=== PATIENT | female | born 1970 | race Caucasian/White ===

== ENCOUNTER 2021-05-06 22:51 | Inpatient (IN) | payer OTHER ==
[~2021-05-06] VITALS: Ht 165.1 cm; Wt 128.0 kg
[2021-05-06 23:21] LABS: HEMATOCRIT 35.4 % (37.0-47.0); HEMOGLOBIN 9.5 g/dl (12.0-16.0); IMMATURE GRANULOCYTES 2.4 % (0.0-5.0); MEAN CELL VOLUME 79.7 fL CALC (80.0-100.0); MEAN CORPUSCULAR HGB 21.4 pG CALC (26.0-32.0); MEAN CORPUSCULAR HGB CONC 26.8 g/dL CAL (32.0-36.0); NEUT# 16.55 thou/uL (2.00-7.15); RED BLOOD COUNT 4.44 mill/uL (4.20-5.60); RED CELL DISTRI WIDTH 18.3 % (11.5-15.5)
[2021-05-06 23:37] LABS: HCG SERUM/URINE (NEG/POS) NEGATIVE (NEGATIVE)
[2021-05-06 23:38] LABS: ALBUMIN 4.1 g/dL (3.2-5.0); ALKALINE PHOSPHATASE 112 u/l (38-126); ANION GAP 23 (6-22 (CALC)); BILIRUBIN, TOTAL 0.4 mg/dL (0.0-1.4); BUN 10 mg/dL (7-17); BUN/CREATININE RATIO 15 (12-20 (CALC)); CARBON DIOXIDE 14 mmol/l (22-30); CHLORIDE 106 mmol/l (95-108); CREATININE 0.6 mg/dL (0.5-1.0); ETHYL ALCOHOL 0 mg/dl (0-30); GFR > 60 ML/MIN (>=60 (CALC)); GFR FOR AFR.AMER. > 60 ML/MIN (>=60 (CALC)); LIPASE 140 u/l (23-300); POTASSIUM 4.6 mmol/l (3.5-5.1); SGOT/AST 31 u/l (14-36); SODIUM 137 mmol/l (137-146); TOTAL PROTEIN 7.4 g/dL (6.3-8.2)
[2021-05-06 23:40] LABS: ACT PARTIAL THROMBO TIME 22.3 SECONDS (20.0-32.5); PROTHROMBIN TIME 10.2 SECONDS (9.0-12.5)
[2021-05-07] VITALS (17 sets, daily range): BP systolic 120–154; BP diastolic 55–77
[2021-05-07 01:34] LABS: URINE BILIRUBIN - DIPSTICK NEGATIVE (NEGATIVE); URINE BLOOD DIPSTICK NEGATIVE (NEGATIVE); URINE COLOR YELLOW; URINE GLUCOSE - DIPSTICK >=1000 mg/dL (NEGATIVE); URINE KETONE NEGATIVE (NEGATIVE); URINE LEUK ESTERASE NEGATIVE (NEGATIVE); URINE PROTEIN - DIPSTICK NEGATIVE (NEG-TRACE); URINE SPECIFIC GRAVITY 1.015; URINE UROBILINOGEN - DIPSTICK 0.2 E.U./dL (0.2)
[2021-05-07 01:35] LABS: URINE NITRITE - DIPSTICK NEGATIVE (Negative)
[2021-05-07 05:39] LABS: HEMATOCRIT 30.1 % (37.0-47.0); HEMOGLOBIN 8.4 g/dl (12.0-16.0); IMMATURE GRANULOCYTES 0.8 % (0.0-5.0); MEAN CELL VOLUME 77.2 fL CALC (80.0-100.0); MEAN CORPUSCULAR HGB 21.5 pG CALC (26.0-32.0); MEAN CORPUSCULAR HGB CONC 27.9 g/dL CAL (32.0-36.0); NEUT# 21.4 thou/uL (2.00-7.15); RED BLOOD COUNT 3.9 mill/uL (4.20-5.60); RED CELL DISTRI WIDTH 17.9 % (11.5-15.5)
[2021-05-07 05:52] LABS: BUN 12 mg/dL (7-17); BUN/CREATININE RATIO 29 (12-20 (CALC)); CHLORIDE 110 mmol/l (95-108); CREATININE 0.4 mg/dL (0.5-1.0); GFR > 60 ML/MIN (>=60 (CALC)); GFR FOR AFR.AMER. > 60 ML/MIN (>=60 (CALC)); MAGNESIUM 1.9 mg/dL (1.6-2.3); POTASSIUM 4.5 mmol/l (3.5-5.1); SODIUM 139 mmol/l (137-146)
[2021-05-07 06:01] LABS: ANION GAP 12 (6-22 (CALC)); CARBON DIOXIDE 22 mmol/l (22-30)
[2021-05-07] MEDS ORDERED: ASPIRIN 81 LOW81 MG PO (14:33)
[2021-05-07] MEDS ORDERED: ELIQUIS5 MG PO (14:38)
[2021-05-07] MEDS ORDERED: ATORVASTATIN CA40 MG PO (14:39)
[2021-05-07] MEDS ORDERED: METFORMIN500 M2 PO (14:40)
[2021-05-07] MEDS ORDERED: LOSARTAN POTASS50 MG PO (14:40)
[2021-05-07] MEDS ORDERED: MONTELUKAST SOD10 MG PO (14:41)
[2021-05-07] MEDS ORDERED: JARDIANCE25 MG PO (14:44)
[2021-05-07] MEDS ORDERED: CETIRIZINE10 MG PO (14:45)
[2021-05-07] MEDS ORDERED: LEVEMIR FL100 UNIT/M SC (14:46)
[2021-05-07] MEDS ORDERED: NORVASC PO (14:47)
[2021-05-07] MEDS ORDERED: CITALOPRAM20 MG PO (14:48)
[2021-05-07] MEDS ORDERED: PROTONIX40 MG PO (14:49)
[2021-05-07] MEDS ORDERED: WIXELA INHUB 501 AER PO (14:51)
[2021-05-07] MEDS ORDERED: LEVOTHYROXIN88 MC1 PO (14:52)
[2021-05-07] MEDS ORDERED: VENTOLIN HFA108 MCG (14:55)
[2021-05-07] MEDS ORDERED: IPRATROPIU0.5 MG/3 M IN (15:05)
[2021-05-07] MEDS ORDERED: HUMALOG100 UNIT/M SC (15:10)
[2021-05-08] VITALS (7 sets, daily range): BP systolic 118–150; BP diastolic 67–79
[2021-05-08 04:29] LABS: HEMATOCRIT 29.5 % (37.0-47.0); HEMOGLOBIN 8.3 g/dl (12.0-16.0); MEAN CELL VOLUME 77.2 fL CALC (80.0-100.0); MEAN CORPUSCULAR HGB 21.7 pG CALC (26.0-32.0); MEAN CORPUSCULAR HGB CONC 28.1 g/dL CAL (32.0-36.0); RED BLOOD COUNT 3.82 mill/uL (4.20-5.60); RED CELL DISTRI WIDTH 17.8 % (11.5-15.5)
[2021-05-08 04:50] LABS: ANION GAP 11 (6-22 (CALC)); BUN 20 mg/dL (7-17); BUN/CREATININE RATIO 40 (12-20 (CALC)); CARBON DIOXIDE 24 mmol/l (22-30); CHLORIDE 111 mmol/l (95-108); CREATININE 0.5 mg/dL (0.5-1.0); GFR > 60 ML/MIN (>=60 (CALC)); GFR FOR AFR.AMER. > 60 ML/MIN (>=60 (CALC)); MAGNESIUM 2.2 mg/dL (1.6-2.3); POTASSIUM 4.8 mmol/l (3.5-5.1); SODIUM 141 mmol/l (137-146)
[2021-05-08] MEDS ORDERED: LEVAQUIN750 M1 PO (11:38)
== END 2021-05-08 13:25 | disposition home or self-care (01) | DRG 193 ==
LOC: EDBD 22:51 → ED 22:51 → ED-I 05-07 → ED 05-07 00:16 → ICU 05-07 00:17
PROVIDERS: ADMIT Hospitalist; ATTEND Hospitalist
PROC: 5A09357 Assistance with Respiratory Ventilation, Less than 24 Consecutive Hours, Continuous Positive Airway Pressure (ICD-10-PCS; principal; 2021-05-06)
PROC: 0T9B70Z Drainage of Bladder with Drainage Device, Via Natural or Artificial Opening (ICD-10-PCS; 2021-05-07)
DX: J18.9 Pneumonia, unspecified organism (principal); J96.01 Acute respiratory failure with hypoxia; E87.4 Mixed disorder of acid-base balance; J44.1 Chronic obstructive pulmonary disease with (acute) exacerbation; J44.0 Chronic obstructive pulmonary disease with (acute) lower respiratory infection; Z68.42 Body mass index [BMI] 45.0-49.9, adult; E66.2 Morbid (severe) obesity with alveolar hypoventilation; E11.65 Type 2 diabetes mellitus with hyperglycemia; I10 Essential (primary) hypertension; Z88.0 Allergy status to penicillin; Z95.5 Presence of coronary angioplasty implant and graft; Z20.822 Contact with and (suspected) exposure to COVID-19
CPT/HCPCS: J1650

== ENCOUNTER 2021-06-11 15:11 | Inpatient (IN) | payer OTHER ==
[~2021-06-11] VITALS: Ht 165.1 cm; Wt 130.0 kg
[~2021-06-11 15:11] MED LIST: ALBUTEROL SUL0.083 % IN; ALEVE220 M1 PO; ALL DAY10 MG PO; AMLODIPINE BESYL5 MG PO; ASPIRIN 81 LOW81 MG PO; ASPIRIN81 MG PO; ATENOLOL25 MG PO; ATORVASTATIN CA40 MG PO; CELEXA20 M1 PO; CETIRIZINE10 MG PO; CITALOPRAM20 MG PO; CLOPIDOGREL75 MG PO; CYCLOBENZAPR5 MG PO; ELIQUIS5 MG PO; FLEXERIL PO; HM ASPIRIN EC325 MG PO; HUMALOG100 UNIT/M SC; IPRATROPIU0.5 MG/3 M IN; ISOSORB MONO30 MG PO; JARDIANCE25 MG PO; LEVAQUIN750 M1 PO; LEVEMIR FL100 UNIT/M SC; LEVOTHYROXIN125 MCG PO; LEVOTHYROXIN25 MC1 PO; LEVOTHYROXIN75 MCG PO; LEVOTHYROXIN88 MC1 PO; LIPITOR20 MG PO; LIPITOR40 M1 PO; LOSARTAN POTASS50 MG PO; Levaquin PO; MEDDOSEPAK PO; METFORMIN HYD1000 MG PO; METFORMIN500 M2 PO; METFORMIN500 MG PO; MONTELUKAST SOD10 MG PO; MONTELUKAST SODIUM PO; MUCINEX600 MG PO; NEBULIZE1; NORVASC PO; NOVOLOG MIX100 U/ML SC; OMNICEF300 M1 PO; PLAVIX75 MG PO; PREDNISONE50 MG PO; PROAIR HFA108 MCG/AC IN; PROAIR HFA108 MCG/AC PO; PROTONIX40 M2 PO; PROTONIX40 MG PO; SERTRALINE25 MG PO; SPIRIVA RE1.25 MCG/A IN; ULTRAM50 M1 PO; VENTOLIN HF1 IN; VENTOLIN HFA108 MCG INHW/SPAC; WIXELA INHUB 501 AER IN; WIXELA INHUB 501 AER PO; ZESTRIL5 M1 PO; ZITHROMAX250 MG PO; ZITHROMAX500 MG PO; ZPAK PO
--- NOTE | 2021-06-11 15:21 | NUR ---
PT ESCORTED VIA EMS STRETCHER TO ROOM 6 FOR EVAL SOB. PROVIDER AT BEDSIDE
--- NOTE | 2021-06-11 15:26 | NUR ---
PREPARATION FOR INTUBATION WITH RN, RT, MD AND ANESTHESIA AT BEDSIDE 1526 KETAMINE ADMINISTRATION 1528 2ND KETAMINE ADMINISTRATION 1530 SUCC ADMINISTRATION 1531 STYLET REMOVED 1532 PROPOFOL INITIATION 1535 ETOMIDATE
[2021-06-11 16:03] LABS: URINE BILIRUBIN - DIPSTICK NEGATIVE (NEGATIVE); URINE BLOOD DIPSTICK NEGATIVE (NEGATIVE); URINE COLOR YELLOW; URINE GLUCOSE - DIPSTICK >=1000 mg/dL (NEGATIVE); URINE KETONE NEGATIVE (NEGATIVE); URINE LEUK ESTERASE NEGATIVE (NEGATIVE); URINE PROTEIN - DIPSTICK 100 mg/dL (NEG-TRACE); URINE SPECIFIC GRAVITY 1.025; URINE UROBILINOGEN - DIPSTICK 0.2 E.U./dL (0.2)
[2021-06-11 16:11] LABS: URINE NITRITE - DIPSTICK NEGATIVE (Negative); URINE RBC 0-2 RBC/hpf (0-5); URINE SQUAMOUS EPITHELIAL CELL FEW EPI/hpf (0-FEW); URINE WBC 0-2 WBC/hpf (0-5)
[2021-06-11 16:29] LABS: HEMATOCRIT 32.2 % (37.0-47.0); HEMOGLOBIN 8.5 g/dl (12.0-16.0); IMMATURE GRANULOCYTES 3.8 % (0.0-5.0); MEAN CELL VOLUME 73.7 fL CALC (80.0-100.0); MEAN CORPUSCULAR HGB 19.5 pG CALC (26.0-32.0); MEAN CORPUSCULAR HGB CONC 26.4 g/dL CAL (32.0-36.0); NEUT# 23.4 thou/uL (2.00-7.15); RED BLOOD COUNT 4.37 mill/uL (4.20-5.60); RED CELL DISTRI WIDTH 19.6 % (11.5-15.5)
[2021-06-11 16:44] LABS: ALBUMIN 3.9 g/dL (3.2-5.0); ALKALINE PHOSPHATASE 118 u/l (38-126); ANION GAP 16 (6-22 (CALC)); BILIRUBIN, TOTAL 0.3 mg/dL (0.0-1.4); BUN 11 mg/dL (7-17); BUN/CREATININE RATIO 17 (12-20 (CALC)); CARBON DIOXIDE 18 mmol/l (22-30); CHLORIDE 111 mmol/l (95-108); CREATININE 0.6 mg/dL (0.5-1.0); GFR > 60 ML/MIN (>=60 (CALC)); GFR FOR AFR.AMER. > 60 ML/MIN (>=60 (CALC)); POTASSIUM 4.9 mmol/l (3.5-5.1); SGOT/AST 56 u/l (14-36); SODIUM 140 mmol/l (137-146)
--- NOTE | 2021-06-11 19:45 | NUR ---
RECEIVED FROM ER VIA STRETCHER. ACCOMPANIED BY ER NURSES AND RT WADNER. PATIENT IS INTUBATED AND SEDATED ON PROPFOL AND VERSED GTTS. RASS -4. TRANSFERRED FROM STRETCHER TO BED WITH 6 PERSON ASSIST. PATIENT PLACED ON VENT BY RT. O2 SAT 98% BREATH SOUNDS COARSE THROUGHOUT LUNGS MENDES. NGT IN PLACE TO LIS DRAINING SMALL AMOUNT YELLOW. GILMORE CATHETER DRAINING CLEAR YELLOW URINE. IO TO RT SHOULDER DC'D WITH NEEDLE INTACT. IV SITES IN RFA AND LFA, BOTH SITES BENIGN. MEDICAL AUTHORIZATION SPECIALIST SHOWS SR HR 90'S. SCD'S INTACT BILATERALLY.
--- NOTE | 2021-06-11 20:06 | NUR ---
Admission Note Report Given to: SHOAIB Transported by: Wheelchair X Stretcher Transported with: X Nurse Transporter X Patent IV X O2 X Joint Creaser Location: X ICU MS2
[2021-06-11 20:15] VITALS: BP 126/58
[2021-06-11 20:30] VITALS: BP 133/64
[2021-06-11 20:45] VITALS: BP 132/64
[2021-06-11 21:00] VITALS: BP 132/60
[2021-06-11 22:00] VITALS: BP 140/70
--- NOTE | 2021-06-11 22:00 | NUR ---
SR ON MONITOR. BP STABLE. WEANING LEVOPHED-DECREASED AT THIS TIME TO 7 MCG/MIN.
[2021-06-11 23:00] VITALS: BP 139/68
--- NOTE | 2021-06-11 23:00 | NUR ---
FIO2 DECERASED TO 80% BY RT.
[2021-06-12] VITALS (23 sets, daily range): BP systolic 116–139; BP diastolic 55–68
--- NOTE | 2021-06-12 02:00 | NUR ---
BP STABLE SINCE ARRIVAL TO ICU. TITRATED DOWN AND DC'D, ON STANDBY AT THIS TIME.
--- NOTE | 2021-06-12 04:00 | NUR ---
VSS. SR ON MONITOR. ADDITIONAL IV STARTED IN LH #20 X1 ATTEMPT. NS NOW INFUSING TO NEW SITE. VERSED GTT CONTINUES AT 5 MG/HR AND PROPOFOL GTT AT 50 MCG/KG/MIN. PATIENT ADEQUATELY SEDATED, RASS -4. SR ON MONITOR, OCC PVC.
[2021-06-12 04:27] LABS: HEMATOCRIT 30.1 % (37.0-47.0); HEMOGLOBIN 8.1 g/dl (12.0-16.0); MEAN CELL VOLUME 72.7 fL CALC (80.0-100.0); MEAN CORPUSCULAR HGB 19.6 pG CALC (26.0-32.0); MEAN CORPUSCULAR HGB CONC 26.9 g/dL CAL (32.0-36.0); RED BLOOD COUNT 4.14 mill/uL (4.20-5.60); RED CELL DISTRI WIDTH 19.6 % (11.5-15.5)
[2021-06-12 04:48] LABS: ANION GAP 12 (6-22 (CALC)); BUN 12 mg/dL (7-17); BUN/CREATININE RATIO 25 (12-20 (CALC)); CALCULATED LDLCHOLESTEROL 76 mg/dL (62-129 (CALC)); CARBON DIOXIDE 21 mmol/l (22-30); CHLORIDE 114 mmol/l (95-108); CHOLESTEROL HDL RATIO 4.8 (<4.4 (CALC)); CREATININE 0.5 mg/dL (0.5-1.0); GFR > 60 ML/MIN (>=60 (CALC)); GFR FOR AFR.AMER. > 60 ML/MIN (>=60 (CALC)); HDL CHOLESTEROL 29 mg/dL (>=40); POTASSIUM 4.7 mmol/l (3.5-5.1); SODIUM 142 mmol/l (137-146); TOTAL CHOLESTEROL 137 mg/dl (0-199); TOTAL TRIGLYCERIDES 163 mg/dl (30-149); VLDL CHOLESTROL 33 mg/dl (2-49 (CALC))
--- NOTE | 2021-06-12 06:40 | NUR ---
NEW ORDERS RECEIVED FOR HEPARIN GTT, BLOOD DRAWN FOR BASELINE PTT AND SENT TO LAB.
--- NOTE | 2021-06-12 07:19 | NUR ---
Patient is screened for interventionand no needs are identified at this time
--- NOTE | 2021-06-12 07:55 | NUR ---
Dr Hernandez called per promotion writer in regards to Heparin bolus; informed pt received Lovenox 40 at approx 2000 last night; orders received to admin Heparin bolus and continue gtt as per protocol; will continue to monitor
--- NOTE | 2021-06-12 08:00 | NUR ---
pt resting/sedated; no apparent distress noted; assessment completed at this time; pt intubated and sedated; pupils sluggish but reactive; no s/sx of pain noted; no n/v noted; resp even and unlabored; lungs coarse anterior; skin color wnl; vent intact and maintained with settings of AC mode, rate 26, TV 380, FiO2 70%, Peep 5.0; 7.5 Fr ETT secured at the 23cm lip line; hr reg; strong pulses; no edema noted; bilat scds intact; sr on monitor; abd soft/ distended with bs present; no bm noted per gag writer; NG tube intact to right nare with greenish gastric contents noted; randall to gravity draining clear yellow urine; #20 to lh patent with ivf infusing without complication; #22 patent to lfa with propofol gtt infusing at 50 mcg/kg/min; #22 to rfa patent with versed gtt infusing at 5mg/hr; #22 started to rh x1 attempt; flushed and patent; heparin gtt initiated at 1000 units/hr; no redness or edema noted at sites; repositioned; will continue to monitor
--- NOTE | 2021-06-12 08:19 | NUR ---
call received from sister Slime; passcode verified; update provided including transfer to [facility]
--- NOTE | 2021-06-12 08:30 | NUR ---
Dr Hernandez present at bedside to assess pt
--- NOTE | 2021-06-12 10:00 | NUR ---
pt intubated and sedated; repositioned; oral care; restraints released for nursing care/repositioning; sr on monitor; randall to gravity; versed/propofol continues; will continue to monitor
--- NOTE | 2021-06-12 10:05 | NUR ---
[facility] transfer center called; spoke with Anali; pt has been accepted; awaiting available bed
[2021-06-12] MEDS ORDERED: ATIVAN0.5 MG PO (10:35)
--- NOTE | 2021-06-12 10:36 | NUR ---
S: ELIDIA REID is a 51 F who presents with SOB, pneumonia. She has a history of diabetes, heart disease, hypertension, lung disease. All medications in patient's chart were reviewed. O: VS: BP 116/57 mmHg, P 82 beats/min, RR 31 breaths/min, T 97.2 F W 130 kg, HT 165.1 cm, Scr=0.5 mg/dL, CrCl= 149.3 ml/min A: No cultures taken P: Patient is on Azetronam 1 gram Q8H IV. Vancomycin ordered for pharmacy to dose. Start [id number] IV Q8H. Vancomycin trough is drawn before the 4th dose on 06/13 @0330. Vancomycin goal trough is between 15-20 mcg/ml. Pharmacy will follow and or advise on antibiotics use as needed.
--- NOTE | 2021-06-12 12:00 | NUR ---
remains intubated and sedated; iv's intact; sr on monitor; will continue to monitor
--- NOTE | 2021-06-12 12:06 | NUR ---
Dr Hernandez present on unit; informs parts data writer to transfer pt by ground transport; informed per this parts data writer of troponin of 2.120
--- NOTE | 2021-06-12 12:08 | NUR ---
call received from [facility] transfer center Eric pt to transfer to [facility] room 4B10; report to be called to [facility] transfer line [phone]
--- NOTE | 2021-06-12 12:19 | NUR ---
[facility] called per staff writer; Dr Sunny ernandez MD
--- NOTE | 2021-06-12 12:20 | NUR ---
[facility] called per teletypewriter operator; information provided to Raina on transfer to [facility]; ETA 2 hours
--- NOTE | 2021-06-12 12:50 | NUR ---
call placed to [facility] K[facility]on; updated on ETA; report to be call closer to time of transfer
--- NOTE | 2021-06-12 14:00 | NUR ---
intubated and sedated; no apparent distress noted; vent intact and maintained; iv's patent; sr on monitor; repositioned to left side; oral care/ suctioning provided; randall to gravity; restraints continued; scds intact; will continue to monitor
--- NOTE | 2021-06-12 14:47 | NUR ---
[facility] transport at bedside to receive pt; report to be provided
--- NOTE | 2021-06-12 15:09 | NUR ---
report provided to [facility] transport; [facility]; versed cont at 4mg/hr; propofol gtt cont at 55mcg/kg/min; heparin gtt infusing at 1000 units/hr; vent intact and maintained per transport team; pt dc'd in stable condition
--- NOTE | 2021-06-12 15:21 | NUR ---
report called to [facility] ICU DEV Rocha
== END 2021-06-12 15:09 | disposition short-term general hospital (02) | DRG 208 ==
LOC: ED 15:11 → ED-I 17:20 → ED 19:09 → ICU 19:10
PROVIDERS: Emergency Medicine; Nurse Practitioner; ADMIT Internal Medicine; ATTEND Internal Medicine
PROC: 5A1935Z Respiratory Ventilation, Less than 24 Consecutive Hours (ICD-10-PCS; principal; 2021-06-11)
PROC: 0BH17EZ Insertion of Endotracheal Airway into Trachea, Via Natural or Artificial Opening (ICD-10-PCS; 2021-06-11)
PROC: 0T9B70Z Drainage of Bladder with Drainage Device, Via Natural or Artificial Opening (ICD-10-PCS; 2021-06-11)
DX: J96.01 Acute respiratory failure with hypoxia (principal); J18.9 Pneumonia, unspecified organism; I21.A1 Myocardial infarction type 2; I21.4 Non-ST elevation (NSTEMI) myocardial infarction; J44.1 Chronic obstructive pulmonary disease with (acute) exacerbation; J44.0 Chronic obstructive pulmonary disease with (acute) lower respiratory infection; Z68.43 Body mass index [BMI] 50.0-59.9, adult; J96.02 Acute respiratory failure with hypercapnia; I11.0 Hypertensive heart disease with heart failure; I50.9 Heart failure, unspecified; E11.65 Type 2 diabetes mellitus with hyperglycemia; I25.10 Atherosclerotic heart disease of native coronary artery without angina pectoris; E66.9 Obesity, unspecified; F17.200 Nicotine dependence, unspecified, uncomplicated; Z95.5 Presence of coronary angioplasty implant and graft; Z79.84 Long term (current) use of oral hypoglycemic drugs; Z79.01 Long term (current) use of anticoagulants; Z79.4 Long term (current) use of insulin; Z86.16 Personal history of COVID-19; Z20.822 Contact with and (suspected) exposure to COVID-19
CPT/HCPCS: J1644; J1650; J2250; J3370; S0164

== ENCOUNTER 2021-06-19 23:18 | Inpatient (IN) | payer OTHER ==
[~2021-06-19] VITALS: Ht 162.6 cm; Wt 123.0 kg
[~2021-06-19 23:18] MED LIST changes: +ATIVAN0.5 MG PO
--- NOTE | 2021-06-19 23:18 | NUR ---
PT ARRIVED VIA STRETCHER ACCOMPANIED BY [facility],PT DIRECT ADMIT FROM [facility], X3 ASSIST TRANSFER TO BED, NO SIGNS OF DISTRESS NOTED, RESP EVEN AND UNLABORED. 02 2L NC, PT ORIENTED TO ROOM AND CALL LIGHT, DISCUSSED POC, VITALS OBTAINED. SKIN INTACT. EDEMA TO BLE, PT C/O L SIDED WEAKNESS SINCE [facility], PT HAS HX OF STROKE. ADMISSION ASSESSMENT COMPLETED, CALL LIGHT IN REACH,CONTINUE TO MONITOR.
[2021-06-19 23:20] VITALS: BP 137/64
[2021-06-20] VITALS (7 sets, daily range): BP systolic 124–150; BP diastolic 55–74
--- NOTE | 2021-06-20 04:00 | NUR ---
PT RESTING IN BED, AM VITALS OBTAINED, NO SIGNS OF DISTRESS NOTED, RESP EVEN AND UNLABORED. PT VOICES NO NEEDS OR COMPLAINTS AT THIS TIME. CALL LIGHT IN REACH,CONTINUE TO MONITOR.
[2021-06-20 05:19] LABS: HEMATOCRIT 29.4 % (37.0-47.0); HEMOGLOBIN 7.8 g/dl (12.0-16.0); IMMATURE GRANULOCYTES 0.6 % (0.0-5.0); MEAN CELL VOLUME 72.8 fL CALC (80.0-100.0); MEAN CORPUSCULAR HGB 19.3 pG CALC (26.0-32.0); MEAN CORPUSCULAR HGB CONC 26.5 g/dL CAL (32.0-36.0); NEUT# 7.58 thou/uL (2.00-7.15); RED BLOOD COUNT 4.04 mill/uL (4.20-5.60); RED CELL DISTRI WIDTH 20.3 % (11.5-15.5)
[2021-06-20 05:35] LABS: BUN 15 mg/dL (7-17); BUN/CREATININE RATIO 35 (12-20 (CALC)); CHLORIDE 108 mmol/l (95-108); CREATININE 0.4 mg/dL (0.5-1.0); GFR > 60 ML/MIN (>=60 (CALC)); GFR FOR AFR.AMER. > 60 ML/MIN (>=60 (CALC)); SGOT/AST 23 u/l (14-36); SODIUM 142 mmol/l (137-146)
[2021-06-20 05:51] LABS: ALKALINE PHOSPHATASE 54 u/l (38-126); ANION GAP 9 (6-22 (CALC)); BILIRUBIN, TOTAL 0.5 mg/dL (0.0-1.4); CARBON DIOXIDE 28 mmol/l (22-30); POTASSIUM 3.3 mmol/l (3.5-5.1); TOTAL PROTEIN 5.5 g/dL (6.3-8.2)
--- NOTE | 2021-06-20 07:08 | NUR ---
REPORT FROM JASPREET WOLFF. ASSUMED PT CARE.
--- NOTE | 2021-06-20 09:53 | NUR ---
PHYSICIAN AT BEDSIDE TO DISCUSS POC.
[2021-06-20] MEDS ORDERED: VENTOLIN HFA IN (10:01)
--- NOTE | 2021-06-20 12:25 | NUR ---
ASSISTED PT X2 PERSON TO SIT AT SIDE OF BED. PT REQUESTS TO GET OOB TO CHAIR, PT NOT ABLE TO MAINTAIN WEIGHT ON FEET AND REQUIRES X3-4 PERSON ASSIST FOR TRANSFER. EDUCATED PT ON NEED FOR PHYSICAL THERAPY CONSULT PRIOR TO RISKING INJURY GETTING UP. PT VERBALIZED UNDERSTANDING. CALL LIGHT WITHIN REACH. WILL CONTINUE TO MONITOR.
--- NOTE | 2021-06-20 15:23 | NUR ---
PT C/O DRY COUGH AND THROAT IRRITATION. PRN COUGH MEDICATION PROVIDED AT THIS TIME ORDERED. PT DENIES ANY OTHER CURRENT WANTS OR NEEDS. NO APPARENT RESPIRATORY DISTRESS NOTED. CALL LIGHT WITHIN REACH. WILL CONTINUE TO MONITOR.
--- NOTE | 2021-06-20 22:17 | NUR ---
PATIENT RESTING IN BED WITH O2 VIA NASAL CANNULA IN PLACE. MEDICATED WITH ATIVAN 0.5MG PO FOR ANXIETY AND SLEEP. MEDICATED WITH ROBITUSSIN FOR COUGH. SAFETY PRECAUTIONS REINFORCED. CALL LIGHT IN REACH. WILL CONT TO MONITOR.
[2021-06-21] VITALS: BP 121/48
--- NOTE | 2021-06-21 00:15 | NUR ---
PATIENT APPEARS SLEEPING WITH EYES CLOSED. RESPS ARE EVEN AND UNLABORED WITH O2 VIA NASAL CANNULA IN PLACE. CALL LIGHT IN REACH. WILL CONT TO MONITOR.
[2021-06-21 04:00] VITALS: BP 137/64
--- NOTE | 2021-06-21 04:38 | NUR ---
PATIENT RESTING IN BED AT THIS TIME. PATIENT UP TO THE C TONIGHT THROUGHOUT THE NIGHT-2X FOR URINE AND BMX 1. O2 VIA NASAL CANNULA IN PLACE AT 2LPM. TELE MONITOR IN PLACE-LAST READING SR-75. CALL LIGHT IN REACH. WILL CONT TO MONITOR.
[2021-06-21 05:21] LABS: HEMATOCRIT 27.4 % (37.0-47.0); HEMOGLOBIN 7.3 g/dl (12.0-16.0); MEAN CELL VOLUME 73.7 fL CALC (80.0-100.0); MEAN CORPUSCULAR HGB 19.6 pG CALC (26.0-32.0); MEAN CORPUSCULAR HGB CONC 26.6 g/dL CAL (32.0-36.0); RED BLOOD COUNT 3.72 mill/uL (4.20-5.60); RED CELL DISTRI WIDTH 20.5 % (11.5-15.5)
[2021-06-21 05:37] LABS: ANION GAP 7 (6-22 (CALC)); BUN 14 mg/dL (7-17); BUN/CREATININE RATIO 40 (12-20 (CALC)); CARBON DIOXIDE 27 mmol/l (22-30); CHLORIDE 107 mmol/l (95-108); CREATININE 0.3 mg/dL (0.5-1.0); GFR > 60 ML/MIN (>=60 (CALC)); GFR FOR AFR.AMER. > 60 ML/MIN (>=60 (CALC)); POTASSIUM 3.4 mmol/l (3.5-5.1); SODIUM 139 mmol/l (137-146)
--- NOTE | 2021-06-21 06:05 | NUR ---
PATIENT RESTING IN BED WITH O2 VIA NASAL CANNULA IN PLACE. LAST O2 SAT WAS 97%. TELE MONITOR IN PLACE-LAST READING WAS SR-75. ANXIOUS FOR DISCHARGE. CALL LIGHT IN REACH. WILL CONT TO MONITOR.
[2021-06-21 08:43] VITALS: BP 138/74
--- NOTE | 2021-06-21 09:36 | NUR ---
GOT REPORT FROM FRONT OFFICE SPEC NURSE. CHECKED AND ASSESSED PATIENT. ASSISTED PATIENT TO BEDSIDE COMMODE AND WHEN FINISHED TO CHAIR. PATIENT IS AOX4. DENIES ANY SOB OR CHEST PAIN, HEADACHE NOR DIZZINESS.
[2021-06-21 10:31] VITALS: BP 123/56
--- NOTE | 2021-06-21 12:00 | NUR ---
PATIENT'S SISTER IS AT BEDSIDE. PATIENT WAS QUESTIONING IF SHE GOT TO GO HOME TODAY. INFORMED HER THAT IT SHOULD BE TOMORROW BECAUSE WE ARE WAITING FOR PHYSICAL THERAPY TO RE-EVALUATE HER. PATIENT VERBALIZED AND UNDERSTANDING.
--- NOTE | 2021-06-21 16:00 | NUR ---
PATIENT IS UP IN CHAIR TALKING TO SISTER ON PHONE. PATIENT HAS FOOD AT BEDSIDE. PATIENT DENIES ANY PAIN OR CONCERNS.
[2021-06-21 19:16] VITALS: BP 129/61
--- NOTE | 2021-06-21 20:50 | NUR ---
RESTING IN BED VITALS STABLE RESPIRATIONS EVEN AND UNLABORED O2 VIA NC AT 2L . ALERT AND ORIENTED BS ACTIVE NO BLE EDEMA NOTED. NO NEEDS OR CONCERNS AT THIS TIME SAFETY PRECAUTIONS IN PLACE
[2021-06-22 00:29] VITALS: BP 118/55
--- NOTE | 2021-06-22 00:41 | NUR ---
RESTING IN BED EYES CLOSED RESPONDS TO VOICE VSS
[2021-06-22 04:36] VITALS: BP 114/59
--- NOTE | 2021-06-22 04:36 | NUR ---
NO ACUTE EVENTS OVERNIGHT VSS Q2 HR ROUNDING PER POLICY
[2021-06-22 05:32] LABS: HEMATOCRIT 29.6 % (37.0-47.0); HEMOGLOBIN 7.9 g/dl (12.0-16.0); MEAN CELL VOLUME 73.8 fL CALC (80.0-100.0); MEAN CORPUSCULAR HGB 19.7 pG CALC (26.0-32.0); MEAN CORPUSCULAR HGB CONC 26.7 g/dL CAL (32.0-36.0); RED BLOOD COUNT 4.01 mill/uL (4.20-5.60); RED CELL DISTRI WIDTH 21.2 % (11.5-15.5)
[2021-06-22 05:57] LABS: ANION GAP 11 (6-22 (CALC)); BUN 12 mg/dL (7-17); BUN/CREATININE RATIO 31 (12-20 (CALC)); CARBON DIOXIDE 26 mmol/l (22-30); CHLORIDE 106 mmol/l (95-108); CREATININE 0.4 mg/dL (0.5-1.0); GFR > 60 ML/MIN (>=60 (CALC)); GFR FOR AFR.AMER. > 60 ML/MIN (>=60 (CALC)); MAGNESIUM 1.9 mg/dL (1.6-2.3); POTASSIUM 3.8 mmol/l (3.5-5.1); SODIUM 139 mmol/l (137-146)
[2021-06-22 08:00] VITALS: BP 112/66
--- NOTE | 2021-06-22 09:19 | NUR ---
Patient is seen for recheck. She presents up in bedisde chair. She is requesting to go home. Apparently she has mutliple familiy members willing to give support. Sensation of the BLEs is WPL Strength- without focal deficit and the patient demonstrates 4/5 for the bilateral extremities Transfers- GISELA for all transfers and in room ambualtion New Goal - Independent ambualtion at the household level using a FWW and VSS Follow up with home health PT P: Continue 1 x daily to work on above prior to DC Am Pac score is 15 indicating she would do well at home with HH for follow up
[2021-06-22 11:05] VITALS: BP 134/68
[2021-06-22 12:12] VITALS: BP 112/66
[2021-06-22] MEDS ORDERED: TOPROL XL25 M1 PO (12:35)
[2021-06-22] MEDS ORDERED: MEDDOSEPAK PO (12:38)
[2021-06-22] MEDS ORDERED: FERROUS SULF325 M3 PO (12:50)
--- NOTE | 2021-06-22 14:10 | NUR ---
Patient stable. Receive report this morning from Karolyn MÉNDEZ. Educated about medications and discharge orders. Patient refer understand
== END 2021-06-22 13:50 | disposition home health service (06) | DRG 190 ==
LOC: MS2 23:18
PROVIDERS: ADMIT Hospitalist; ATTEND Hospitalist
DX: J44.1 Chronic obstructive pulmonary disease with (acute) exacerbation (principal); I21.A1 Myocardial infarction type 2; J96.11 Chronic respiratory failure with hypoxia; Z68.42 Body mass index [BMI] 45.0-49.9, adult; I11.0 Hypertensive heart disease with heart failure; I50.9 Heart failure, unspecified; E11.9 Type 2 diabetes mellitus without complications; I25.10 Atherosclerotic heart disease of native coronary artery without angina pectoris; I48.91 Unspecified atrial fibrillation; D64.9 Anemia, unspecified; E03.9 Hypothyroidism, unspecified; F41.9 Anxiety disorder, unspecified; Z79.01 Long term (current) use of anticoagulants; Z79.84 Long term (current) use of oral hypoglycemic drugs; Z79.4 Long term (current) use of insulin
CPT/HCPCS: J1756

== ENCOUNTER 2021-07-08 03:01 | Inpatient (IN) | payer OTHER ==
[2021-07-08] VITALS (62 sets, daily range): BP systolic 110–165; BP diastolic 47–119
[~2021-07-08] VITALS: Ht 162.6 cm; Wt 136.0 kg
[~2021-07-08 03:01] MED LIST changes: +ADVAIR DISK2 IN; +FERROUS SULF325 M3 PO; +TOPROL XL25 M1 PO; +VENTOLIN HFA IN; -WIXELA INHUB 501 AER IN
--- NOTE | 2021-07-08 03:02 | NUR ---
TO ROOM VIA EMS/RT AT BEDSIDE. PT PLACED ON BIPAP.
--- NOTE | 2021-07-08 03:13 | NUR ---
PT TO ROOM VIA EMS IN RESP DISTRESS MD AT BEDSIDE
[2021-07-08 03:30] LABS: HEMATOCRIT 36.1 % (37.0-47.0); HEMOGLOBIN 9.3 g/dl (12.0-16.0); IMMATURE GRANULOCYTES 2.9 % (0.0-5.0); MEAN CELL VOLUME 75.2 fL CALC (80.0-100.0); MEAN CORPUSCULAR HGB 19.4 pG CALC (26.0-32.0); MEAN CORPUSCULAR HGB CONC 25.8 g/dL CAL (32.0-36.0); NEUT# 14.19 thou/uL (2.00-7.15); RED BLOOD COUNT 4.8 mill/uL (4.20-5.60); RED CELL DISTRI WIDTH 22.6 % (11.5-15.5)
[2021-07-08 03:45] LABS: URINE BILIRUBIN - DIPSTICK NEGATIVE (NEGATIVE); URINE BLOOD DIPSTICK NEGATIVE (NEGATIVE); URINE COLOR YELLOW; URINE GLUCOSE - DIPSTICK >=1000 mg/dL (NEGATIVE); URINE KETONE NEGATIVE (NEGATIVE); URINE LEUK ESTERASE NEGATIVE (NEGATIVE); URINE PROTEIN - DIPSTICK TRACE mg/dL (NEG-TRACE); URINE SPECIFIC GRAVITY 1.015; URINE UROBILINOGEN - DIPSTICK 0.2 E.U./dL (0.2)
[2021-07-08 03:47] LABS: ALBUMIN 4.3 g/dL (3.2-5.0); ALKALINE PHOSPHATASE 86 u/l (38-126); ANION GAP 22 (6-22 (CALC)); BILIRUBIN, TOTAL 0.4 mg/dL (0.0-1.4); BUN 9 mg/dL (7-17); BUN/CREATININE RATIO 17 (12-20 (CALC)); CHLORIDE 105 mmol/l (95-108); CREATININE 0.5 mg/dL (0.5-1.0); ETHYL ALCOHOL 0 mg/dl (0-30); GFR > 60 ML/MIN (>=60 (CALC)); GFR FOR AFR.AMER. > 60 ML/MIN (>=60 (CALC)); LIPASE 91 u/l (23-300); POTASSIUM 4.7 mmol/l (3.5-5.1); SGOT/AST 27 u/l (14-36); SODIUM 140 mmol/l (137-146); TOTAL PROTEIN 7.3 g/dL (6.3-8.2)
[2021-07-08 03:48] LABS: ACT PARTIAL THROMBO TIME 22.6 SECONDS (20.0-32.5); INTERNATIONAL NORMALIZED RATIO 0.9 RATIO (0.7-1.3); PROTHROMBIN TIME 9.9 SECONDS (9.0-12.5)
[2021-07-08 03:54] LABS: URINE NITRITE - DIPSTICK NEGATIVE (Negative)
[2021-07-08 03:57] LABS: CARBON DIOXIDE 18 mmol/l (22-30)
--- NOTE | 2021-07-08 04:11 | NUR ---
GILMORE EMPTIED FOR 1800 CC OF CLEAR YELLOW URINE. PT VOMITING...BIPAP REMOVED AND ZOFRAN GIVEN. NRB APPLIED WHILE CLEANING PT AND GETTING NEW BIPAP TUBING. FRESH BIPAP APPLIED.
--- NOTE | 2021-07-08 04:44 | NUR ---
PT CALM...RESTING. ON BIPAP. VANCO INFUSING. CM ST. REPORT TO SUSAN, ICU.
--- NOTE | 2021-07-08 04:55 | NUR ---
51 yr old white female admitted icu7 per stretcher from er. transferred x4 to bed. bed weight obtained. bipap cont. hob elevated. nad @ present. improvement rn shows sinus rhythm. #18 rac & #20 rt wrist saline locks. randall cath in place. urine clear yellow. history obtained per pt & er record. oriented to room. fall precautions initiated.
--- NOTE | 2021-07-08 04:55 | NUR ---
TO FLOOR VIA STRETCHER WITH R.T/RN. MONITOR/BIPAP BOTH IV ANTIBIOTICS CLAMPED TO ON WAY TO ICU. PT TRANSFERRED BY STAFF UPON ARRIVAL.
--- NOTE | 2021-07-08 07:05 | NUR ---
pt on bipap, alert/oriented, resting quietly on stretcher. no complaints at this time, will change to n/c per doctor order
--- NOTE | 2021-07-08 07:25 | NUR ---
PT. FIO2 WEANED TO 40% AT THIS TIME. SPO2 REMAINS 100%
--- NOTE | 2021-07-08 09:18 | NUR ---
PT. PLACED ON 8L/MIN. HIGH FLOW NASAL CANNULA AT THIS TIME PER. PHYSICIAN REQUEST TO WEAN OFF BIPAP. SPO2 IS 98% CORRELATING WITH PULSE.
[2021-07-08] MEDS ORDERED: POTASSIUM CHLO10 MEQ PO (09:43)
[2021-07-08] MEDS ORDERED: LASIX20 MG PO (09:43)
--- NOTE | 2021-07-08 10:38 | NUR ---
TRANSFER BEGUN FOR PT TO POSSIBLY GO TO [facility] , WAITING FOR DOCTOR TO DOCTOR CALL
--- NOTE | 2021-07-08 13:46 | NUR ---
O2 SAT ON 6L 100%. DECREASED TO 4L.
--- NOTE | 2021-07-08 15:32 | NUR ---
REPORT GIVEN TO [facility] FOR CONTINUATION OF CARE. PT CONTINUES TO DENY ANY CHEST PAIN, SATS IN THE 92-94 ON 4 LITRE N//C, ALERT/ORIENTED X3, WILL CONTINUE TO REASSESS WHILE WAITING FOR [facility] FOR TRANSFER.
--- NOTE | 2021-07-08 19:00 | NUR ---
REPORT RECEIVED FROM Jonatan DELCID RN. CARE OF PT ASSUMED AT THIS TIME.
--- NOTE | 2021-07-08 19:15 | NUR ---
PER [facility] AD CLERK, ETA 120 MINUTES. PT MADE AWARE.
--- NOTE | 2021-07-08 21:44 | NUR ---
TRANSPORT ARRIVED FOR PATIENT, PACKET PROVIDED TO TRANSPORT TEAM.
--- NOTE | 2021-07-08 22:15 | NUR ---
PT DISCHARGED TO [facility] VIA [facility] ON APPLIANCE SERVICE SUPERVISOR. PT STABLE.
== END 2021-07-08 22:15 | disposition short-term general hospital (02) | DRG 280 ==
LOC: ED 03:01 → ED-I 04:00 → ED 04:26 → ICU 04:27
PROVIDERS: ADMIT Internal Medicine; ATTEND Internal Medicine
PROC: 5A09357 Assistance with Respiratory Ventilation, Less than 24 Consecutive Hours, Continuous Positive Airway Pressure (ICD-10-PCS; principal; 2021-07-08)
DX: I22.2 Subsequent non-ST elevation (NSTEMI) myocardial infarction (principal); J96.21 Acute and chronic respiratory failure with hypoxia; J44.1 Chronic obstructive pulmonary disease with (acute) exacerbation; Z68.43 Body mass index [BMI] 50.0-59.9, adult; I11.0 Hypertensive heart disease with heart failure; I21.4 Non-ST elevation (NSTEMI) myocardial infarction; I50.9 Heart failure, unspecified; E11.65 Type 2 diabetes mellitus with hyperglycemia; D72.829 Elevated white blood cell count, unspecified; I25.10 Atherosclerotic heart disease of native coronary artery without angina pectoris; D64.9 Anemia, unspecified; I48.91 Unspecified atrial fibrillation; F41.9 Anxiety disorder, unspecified; E66.9 Obesity, unspecified; Z79.84 Long term (current) use of oral hypoglycemic drugs; Z79.4 Long term (current) use of insulin; Z79.01 Long term (current) use of anticoagulants; Z87.891 Personal history of nicotine dependence; Z95.5 Presence of coronary angioplasty implant and graft; Z20.822 Contact with and (suspected) exposure to COVID-19
CPT/HCPCS: J1650

== ENCOUNTER 2021-09-22 14:25 | Emergency (ER) | payer OTHER ==
[~2021-09-22] VITALS: Ht 162.6 cm; Wt 102.0 kg
[2021-09-22] VITALS (7 sets, daily range): BP systolic 133–150; BP diastolic 53–83
[~2021-09-22 14:25] MED LIST changes: +LASIX20 MG PO; +POTASSIUM CHLO10 MEQ PO
[2021-09-22 15:50] LABS: HEMATOCRIT 39.7 % (37.0-47.0); HEMOGLOBIN 11.2 g/dl (12.0-16.0); IMMATURE GRANULOCYTES 0.5 % (0.0-5.0); MEAN CORPUSCULAR HGB 19.1 pG CALC (26.0-32.0); MEAN CORPUSCULAR HGB CONC 28.2 g/dL CAL (32.0-36.0); NEUT# 11.12 thou/uL (2.00-7.15); RED BLOOD COUNT 5.86 mill/uL (4.20-5.60); RED CELL DISTRI WIDTH 21.7 % (11.5-15.5)
[2021-09-22 16:07] LABS: ALBUMIN 4.1 g/dL (3.2-5.0); ALKALINE PHOSPHATASE 116 u/l (38-126); BUN 14 mg/dL (7-17); BUN/CREATININE RATIO 23 (12-20 (CALC)); CHLORIDE 105 mmol/l (95-108); CREATININE 0.6 mg/dL (0.5-1.0); GFR FOR AFR.AMER. > 60 ML/MIN (>=60 (CALC)); GFR OTHER RACES > 60 ML/MIN (>=60 (CALC)); POTASSIUM 4.4 mmol/l (3.5-5.1); SGOT/AST 16 u/l (14-36); SODIUM 139 mmol/l (137-146); TOTAL PROTEIN 7.7 g/dL (6.3-8.2)
[2021-09-22 16:18] LABS: ANION GAP 13 (6-22 (CALC)); BILIRUBIN, TOTAL 0.2 mg/dL (0.0-1.4); CARBON DIOXIDE 25 mmol/l (22-30)
[2021-09-22 16:23] LABS: MEAN CELL VOLUME 67.7 fL CALC (80.0-100.0)
[2021-09-22 16:25] LABS: URINE BILIRUBIN - DIPSTICK NEGATIVE (NEGATIVE); URINE BLOOD DIPSTICK NEGATIVE (NEGATIVE); URINE COLOR YELLOW; URINE GLUCOSE - DIPSTICK >=1000 mg/dL (NEGATIVE); URINE KETONE NEGATIVE (NEGATIVE); URINE LEUK ESTERASE NEGATIVE (NEGATIVE); URINE PH 5.5 (4.5-8.0); URINE PROTEIN - DIPSTICK NEGATIVE (NEG-TRACE); URINE UROBILINOGEN - DIPSTICK 0.2 E.U./dL (0.2)
[2021-09-22 16:29] LABS: URINE NITRITE - DIPSTICK NEGATIVE (Negative)
== END 2021-09-22 18:02 | disposition home or self-care (01) ==
LOC: ED 14:25 → ED-I 16:50 → ED 18:02
PROVIDERS: Family Medicine
DX: E11.65 Type 2 diabetes mellitus with hyperglycemia (principal); I11.0 Hypertensive heart disease with heart failure; I50.9 Heart failure, unspecified; J44.9 Chronic obstructive pulmonary disease, unspecified; I48.91 Unspecified atrial fibrillation; E78.5 Hyperlipidemia, unspecified; F41.9 Anxiety disorder, unspecified; E66.01 Morbid (severe) obesity due to excess calories; F17.200 Nicotine dependence, unspecified, uncomplicated; I25.2 Old myocardial infarction; Z79.84 Long term (current) use of oral hypoglycemic drugs; Z95.5 Presence of coronary angioplasty implant and graft; Z79.4 Long term (current) use of insulin

== ENCOUNTER 2021-09-28 20:15 | Observation (INO) | payer OTHER ==
[2021-09-28] VITALS (15 sets, daily range): BP systolic 91–156; BP diastolic 46–74
[~2021-09-28] VITALS: Ht 162.6 cm; Wt 123.0 kg
[2021-09-28 21:01] LABS: HEMATOCRIT 40.9 % (37.0-47.0); HEMOGLOBIN 11.3 g/dl (12.0-16.0); IMMATURE GRANULOCYTES 0.6 % (0.0-5.0); MEAN CELL VOLUME 69.2 fL CALC (80.0-100.0); MEAN CORPUSCULAR HGB 19.1 pG CALC (26.0-32.0); MEAN CORPUSCULAR HGB CONC 27.6 g/dL CAL (32.0-36.0); NEUT# 11.04 thou/uL (2.00-7.15); RED BLOOD COUNT 5.91 mill/uL (4.20-5.60); RED CELL DISTRI WIDTH 21.3 % (11.5-15.5)
[2021-09-28 21:18] LABS: ALBUMIN 4.2 g/dL (3.2-5.0); ALKALINE PHOSPHATASE 119 u/l (38-126); ANION GAP 13 (6-22 (CALC)); BUN 9 mg/dL (7-17); BUN/CREATININE RATIO 16 (12-20 (CALC)); CARBON DIOXIDE 26 mmol/l (22-30); CHLORIDE 102 mmol/l (95-108); CREATININE 0.6 mg/dL (0.5-1.0); GFR FOR AFR.AMER. > 60 ML/MIN (>=60 (CALC)); GFR OTHER RACES > 60 ML/MIN (>=60 (CALC)); SGOT/AST 14 u/l (14-36); SODIUM 136 mmol/l (137-146); TOTAL PROTEIN 7.9 g/dL (6.3-8.2)
[2021-09-28 21:19] LABS: BILIRUBIN, TOTAL 0.3 mg/dL (0.0-1.4)
[2021-09-28] MEDS ORDERED: COREG3.125 MG PO (21:19)
[2021-09-28] MEDS ORDERED: SPIRONOLACT25 MG PO (21:20)
[2021-09-28] MEDS ORDERED: DOFETILIDE250 MCG PO (21:21)
[2021-09-28 21:30] LABS: MYOGLOBIN 17 ng/mL (0 - 62)
[2021-09-28 21:50] LABS: URINE BILIRUBIN - DIPSTICK NEGATIVE (NEGATIVE); URINE BLOOD DIPSTICK TRACE-INTACT (NEGATIVE); URINE COLOR YELLOW; URINE GLUCOSE - DIPSTICK >=1000 mg/dL (NEGATIVE); URINE KETONE NEGATIVE (NEGATIVE); URINE LEUK ESTERASE NEGATIVE (NEGATIVE); URINE PH 5.5 (4.5-8.0); URINE PROTEIN - DIPSTICK NEGATIVE (NEG-TRACE); URINE SPECIFIC GRAVITY 1.015; URINE UROBILINOGEN - DIPSTICK 0.2 E.U./dL (0.2)
[2021-09-28 21:52] LABS: URINE NITRITE - DIPSTICK NEGATIVE (Negative)
[2021-09-29] VITALS (17 sets, daily range): BP systolic 118–144; BP diastolic 41–71
[2021-09-29 03:56] LABS: CHOLESTEROL HDL RATIO 5.2 (<4.4 (CALC)); MAGNESIUM 1.9 mg/dL (1.6-2.3)
[2021-09-29 10:45] LABS: HEMATOCRIT 39.9 % (37.0-47.0); IMMATURE GRANULOCYTES 0.4 % (0.0-5.0); MEAN CELL VOLUME 68.9 fL CALC (80.0-100.0); MEAN CORPUSCULAR HGB CONC 27.6 g/dL CAL (32.0-36.0); NEUT# 10.4 thou/uL (2.00-7.15); RED BLOOD COUNT 5.79 mill/uL (4.20-5.60); RED CELL DISTRI WIDTH 21.4 % (11.5-15.5)
[2021-09-29 10:54] LABS: ANION GAP 13 (6-22 (CALC)); BUN 11 mg/dL (7-17); BUN/CREATININE RATIO 21 (12-20 (CALC)); CARBON DIOXIDE 23 mmol/l (22-30); CHLORIDE 104 mmol/l (95-108); CREATININE 0.5 mg/dL (0.5-1.0); GFR FOR AFR.AMER. > 60 ML/MIN (>=60 (CALC)); GFR OTHER RACES > 60 ML/MIN (>=60 (CALC)); POTASSIUM 4.4 mmol/l (3.5-5.1); SODIUM 135 mmol/l (137-146)
== END 2021-09-29 13:00 | disposition home or self-care (01) ==
LOC: ED 20:15 → ED-I 22:30 → ED 22:42 → ICU 22:43 → ED-I 22:43 → ICU 09-29 08:57
PROVIDERS: Emergency Medicine; Nurse Practitioner; ADMIT Internal Medicine; ATTEND Internal Medicine
DX: R07.9 Chest pain, unspecified (principal); I11.0 Hypertensive heart disease with heart failure; I50.9 Heart failure, unspecified; I25.10 Atherosclerotic heart disease of native coronary artery without angina pectoris; E11.9 Type 2 diabetes mellitus without complications; J44.9 Chronic obstructive pulmonary disease, unspecified; I48.91 Unspecified atrial fibrillation; F41.9 Anxiety disorder, unspecified; E78.5 Hyperlipidemia, unspecified; E66.01 Morbid (severe) obesity due to excess calories; I25.2 Old myocardial infarction; Z95.5 Presence of coronary angioplasty implant and graft; Z79.4 Long term (current) use of insulin; Z87.891 Personal history of nicotine dependence; Z20.822 Contact with and (suspected) exposure to COVID-19

== ENCOUNTER 2021-10-06 13:17 | Emergency (ER) | payer OTHER ==
[~2021-10-06] VITALS: Ht 162.6 cm; Wt 118.0 kg
[~2021-10-06 13:17] MED LIST changes: +COREG3.125 MG PO; +DOFETILIDE250 MCG PO; +SPIRONOLACT25 MG PO
[2021-10-06 13:59] LABS: HEMATOCRIT 39.6 % (37.0-47.0); HEMOGLOBIN 10.9 g/dl (12.0-16.0); IMMATURE GRANULOCYTES 0.4 % (0.0-5.0); MEAN CELL VOLUME 69.5 fL CALC (80.0-100.0); MEAN CORPUSCULAR HGB 19.1 pG CALC (26.0-32.0); MEAN CORPUSCULAR HGB CONC 27.5 g/dL CAL (32.0-36.0); NEUT# 9.98 thou/uL (2.00-7.15); RED BLOOD COUNT 5.7 mill/uL (4.20-5.60); RED CELL DISTRI WIDTH 21.2 % (11.5-15.5)
[2021-10-06 14:16] LABS: ALBUMIN 3.9 g/dL (3.2-5.0); ALKALINE PHOSPHATASE 119 u/l (38-126); ANION GAP 11 (6-22 (CALC)); BILIRUBIN, TOTAL 0.2 mg/dL (0.0-1.4); BUN 10 mg/dL (7-17); BUN/CREATININE RATIO 14 (12-20 (CALC)); CARBON DIOXIDE 27 mmol/l (22-30); CHLORIDE 102 mmol/l (95-108); CREATININE 0.7 mg/dL (0.5-1.0); GFR FOR AFR.AMER. > 60 ML/MIN (>=60 (CALC)); GFR OTHER RACES > 60 ML/MIN (>=60 (CALC)); POTASSIUM 4.5 mmol/l (3.5-5.1); SGOT/AST 16 u/l (14-36); SODIUM 135 mmol/l (137-146); TOTAL PROTEIN 7.3 g/dL (6.3-8.2)
[2021-10-06 18:00] VITALS: BP 122/51
== END 2021-10-06 17:30 | disposition short-term general hospital (02) ==
LOC: ED 13:17
PROVIDERS: Family Medicine
DX: I21.4 Non-ST elevation (NSTEMI) myocardial infarction (principal); I11.0 Hypertensive heart disease with heart failure; I50.9 Heart failure, unspecified; E11.9 Type 2 diabetes mellitus without complications; I48.91 Unspecified atrial fibrillation; J44.9 Chronic obstructive pulmonary disease, unspecified; F41.9 Anxiety disorder, unspecified; E78.5 Hyperlipidemia, unspecified; I25.2 Old myocardial infarction; E66.01 Morbid (severe) obesity due to excess calories; F17.200 Nicotine dependence, unspecified, uncomplicated; Z95.5 Presence of coronary angioplasty implant and graft; Z79.4 Long term (current) use of insulin; Z20.822 Contact with and (suspected) exposure to COVID-19
CPT/HCPCS: J1644

== ENCOUNTER → 2021-10-22 | Emergency (ER) | payer OTHER ==
[~2021-10-22] VITALS: Ht 162.6 cm; Wt 95.0 kg
[2021-10-22 20:36] LABS: HEMATOCRIT 33.7 % (37.0-47.0); HEMOGLOBIN 9.5 g/dl (12.0-16.0); IMMATURE GRANULOCYTES 1.6 % (0.0-5.0); MEAN CORPUSCULAR HGB 20.9 pG CALC (26.0-32.0); MEAN CORPUSCULAR HGB CONC 28.2 g/dL CAL (32.0-36.0); NEUT# 9.94 thou/uL (2.00-7.15); RED BLOOD COUNT 4.54 mill/uL (4.20-5.60); RED CELL DISTRI WIDTH 23.4 % (11.5-15.5)
[2021-10-22 20:43] LABS: MEAN CELL VOLUME 74.2 fL CALC (80.0-100.0)
[2021-10-22 20:53] LABS: ALBUMIN 3.6 g/dL (3.2-5.0); ALKALINE PHOSPHATASE 119 u/l (38-126); ANION GAP 12 (6-22 (CALC)); BILIRUBIN, TOTAL 0.2 mg/dL (0.0-1.4); BUN 15 mg/dL (7-17); BUN/CREATININE RATIO 28 (12-20 (CALC)); CARBON DIOXIDE 28 mmol/l (22-30); CHLORIDE 103 mmol/l (95-108); CREATININE 0.6 mg/dL (0.5-1.0); GFR FOR AFR.AMER. > 60 ML/MIN (>=60 (CALC)); GFR OTHER RACES > 60 ML/MIN (>=60 (CALC)); POTASSIUM 4.4 mmol/l (3.5-5.1); SGOT/AST 17 u/l (14-36); SODIUM 139 mmol/l (137-146)
[2021-10-22 20:56] LABS: PROTHROMBIN TIME 10.9 SECONDS (9.0-12.5)
[2021-10-22 21:03] LABS: D-DIMER 8.16 mg/L (0.19-0.60)
[2021-10-22 21:04] LABS: MYOGLOBIN 25 ng/mL (0 - 62)
--- NOTE | 2021-10-22 21:22 | NUR ---
PATIENT GIVEN 40MG OF LASIX IV AT THIS TIME, AND NITRO PASTE APPLIED TO LEFT UPPER ARM AT THIS TIME. 100MG OF LOVENOX SUB-Q GIVEN IN LOWER ABDOMIN AND PATIENT ALSO RECEIVED 324MG OF CHEWABLE ASPIRIN AT THIS TIME. PATIENT TOLERATED ALL MEDICATIONS WITHOUT ISSUE AND WAS GIVEN MEDICATION EDUCATION PRIOR TO MEDICATION ADMINISTRATION.
[2021-10-22 21:51] LABS: URINE BILIRUBIN - DIPSTICK NEGATIVE (NEGATIVE); URINE BLOOD DIPSTICK SMALL (NEGATIVE); URINE COLOR YELLOW; URINE GLUCOSE - DIPSTICK >=1000 mg/dL (NEGATIVE); URINE KETONE NEGATIVE (NEGATIVE); URINE LEUK ESTERASE TRACE (NEGATIVE); URINE PROTEIN - DIPSTICK NEGATIVE (NEG-TRACE); URINE UROBILINOGEN - DIPSTICK 0.2 E.U./dL (0.2)
[2021-10-22 21:56] LABS: URINE NITRITE - DIPSTICK NEGATIVE (Negative)
[2021-10-22 22:02] LABS: URINE SQUAMOUS EPITHELIAL CELL FEW EPI/hpf (0-FEW); URINE YEAST FEW hpf
[2021-10-23 04:30] VITALS: BP 125/79
== END | disposition short-term general hospital (02) ==
LOC: ED 19:48
PROVIDERS: Family Medicine
DX: I11.0 Hypertensive heart disease with heart failure (principal); I50.9 Heart failure, unspecified; E11.9 Type 2 diabetes mellitus without complications; I48.91 Unspecified atrial fibrillation; J44.9 Chronic obstructive pulmonary disease, unspecified; E78.5 Hyperlipidemia, unspecified; F41.9 Anxiety disorder, unspecified; I25.2 Old myocardial infarction; E66.01 Morbid (severe) obesity due to excess calories; Z99.81 Dependence on supplemental oxygen; Z87.891 Personal history of nicotine dependence; Z95.1 Presence of aortocoronary bypass graft; Z95.5 Presence of coronary angioplasty implant and graft; Z79.4 Long term (current) use of insulin; Z20.822 Contact with and (suspected) exposure to COVID-19
CPT/HCPCS: J1650

== ENCOUNTER 2021-10-26 13:28 | Emergency (ER) | payer OTHER ==
[~2021-10-26] VITALS: Ht 162.6 cm; Wt 131.5 kg
[2021-10-26 13:54] LABS: HEMATOCRIT 32.1 % (37.0-47.0); HEMOGLOBIN 8.6 g/dl (12.0-16.0); MEAN CELL VOLUME 76.4 fL CALC (80.0-100.0); MEAN CORPUSCULAR HGB 20.5 pG CALC (26.0-32.0); MEAN CORPUSCULAR HGB CONC 26.8 g/dL CAL (32.0-36.0); NEUT# 8.18 thou/uL (2.00-7.15); RED BLOOD COUNT 4.2 mill/uL (4.20-5.60); RED CELL DISTRI WIDTH 23.2 % (11.5-15.5)
[2021-10-26 14:11] LABS: ACT PARTIAL THROMBO TIME 47.9 SECONDS (20.0-32.5); ALKALINE PHOSPHATASE 94 u/l (38-126); BUN 9 mg/dL (7-17); BUN/CREATININE RATIO 13 (12-20 (CALC)); CHLORIDE 103 mmol/l (95-108); CREATININE 0.7 mg/dL (0.5-1.0); GFR FOR AFR.AMER. > 60 ML/MIN (>=60 (CALC)); GFR OTHER RACES > 60 ML/MIN (>=60 (CALC)); INTERNATIONAL NORMALIZED RATIO 1.2 RATIO (0.7-1.3); LIPASE 221 u/l (23-300); PROTHROMBIN TIME 12.2 SECONDS (9.0-12.5); SODIUM 141 mmol/l (137-146)
[2021-10-26 14:12] LABS: IMMATURE GRANULOCYTES 12.2 % (0.0-5.0)
[2021-10-26 14:14] LABS: ALBUMIN 2.5 g/dL (3.2-5.0); ANION GAP 24 (6-22 (CALC)); BILIRUBIN, TOTAL 0.1 mg/dL (0.0-1.4); CARBON DIOXIDE 20 mmol/l (22-30); MAGNESIUM 2.5 mg/dL (1.6-2.3); SGOT/AST 49 u/l (14-36); TOTAL PROTEIN 4.7 g/dL (6.3-8.2)
[2021-10-26 14:30] VITALS: BP 142/96
== END 2021-10-26 14:30 | disposition short-term general hospital (02) ==
LOC: ED 13:28
DX: I46.9 Cardiac arrest, cause unspecified (principal); I11.0 Hypertensive heart disease with heart failure; I50.9 Heart failure, unspecified; E11.9 Type 2 diabetes mellitus without complications; J44.9 Chronic obstructive pulmonary disease, unspecified; I48.91 Unspecified atrial fibrillation; E78.5 Hyperlipidemia, unspecified; F41.9 Anxiety disorder, unspecified; I25.2 Old myocardial infarction; E66.01 Morbid (severe) obesity due to excess calories; F17.200 Nicotine dependence, unspecified, uncomplicated; Z79.4 Long term (current) use of insulin; Z95.1 Presence of aortocoronary bypass graft; Z95.5 Presence of coronary angioplasty implant and graft